=== PATIENT | male | born 2000 | race Caucasian/White ===

== ENCOUNTER 2020-08-31 08:46 | Emergency (ER) | payer OTHER, BC, SELFPAY ==
[2020-08-31 08:47] VITALS: BP 161/86; PULSE 123; RESP 16; TEMP 36.2; O2SAT 99; BMI 31.5
--- NOTE | 2020-08-31 09:00 | ED.RN ---
COMPANY NOT IN DATABASE. UNABLE TO DETERMINE DRUG SCREEN STATUS. PT REPORTS BOSS IN ON WAY IN.
--- NOTE | 2020-08-31 09:13 | ED.VIS.GEN ---
History of Present Illness Chief Complaint: Laceration Informant: Patient Narrative: Patient is a 20-year-old previously healthy male who presents to the emergency department for laceration to his left middle and ring finger. He was at work drilling into a piece of steel. The steel started to spin and cut his finger. Bleeding is controlled prior to arrival in the emergency department. He denies any loss of sensation or muscle strength. He had does have full range of motion. Denies any other injury. He is on any blood thinning medications. Patient does not recall when his last tetanus shot was. Past Medical History - Allergies and Home Meds Allergies/Adverse Reactions: Allergies No Known Allergies Allergy (Verified 08/31/20 08:47) Primary Care Physician: [facility],Out of [NON-STAFF] - 7 Days for suture removal Prior records reviewed: Yes Surgical History: no surgical history Smoking Status: Never smoker Review of Systems All systems negative except as indicated General: Denies: Chills, Fever, Sweats ENT: Denies: Rhinorrhea Cardiovascular: Denies: Chest pain Respiratory: Denies: Dyspnea, Cough Gastrointestinal: Denies: Abdominal pain, Nausea, Vomiting, Diarrhea Musculoskeletal: Reports: Extremity Pain. Denies: Back pain, Swelling Skin: Reports: Wounds. Denies: Rash Neurological: Denies: Headache, Weakness, Numbness Hematologic: Denies: Easy bruising, Easy bleeding Physical Exam Vital Signs/Narrative: Vital Signs Temp Pulse Resp BP Pulse Ox 08/31/20 08:47 97.2 F L 123 H 16 161/86 H 99 Inital Vital Signs reviewed: Yes General: Well nourished, Well developed Head: Normocephalic, Atraumatic Eyes: Perrl, EOMI ENT: Moist mucous membranes Neck: Supple, Nontender Cardiovascular: Regular rate Respiratory: No distress Abdomen: Soft, Nondistended Extremities: - - 3 cm laceration around the distal aspect of tip of ring finger. Sensation intact. Full range of motion. No active bleeding. 1 cm laceration/avulsion to the middle finger. No active bleeding. Sensation intact. Good capillary refill throughout. Skin: Normal color, No rash Neurological: Alert, Normal Strength, Normal Sensation Psychological: Normal affect, Normal Mood Diagnostic/Tx/Re-eval - Medical Decision Making Patient presents to the emergency department for laceration to his finger. He was at work and cut it on a piece of steel. Will update patient's tetanus shot. Lacerations do require suture repair of the middle finger. Dermabond was used for the index finger which was an avulsion fracture will likely not heal and will scab over. Have him follow-up with his family doctor. Patient to monitor for evidence of infection. Sutures will need removed in 7 to 10 days. Warning signs and symptoms for which to return to the ED occluding evidence of infection are reviewed with him. Patient understands and is agreeable this plan. He is discharged home in stable condition. Procedures Procedure(s): Laceration repair: Informed consent was obtained before procedure started. The appropriate timeout was taken. The area was prepped and draped in the usual sterile fashion. Local anesthesia was achieved using 5cc of lidocaine 1% without epinephrine for digital block of middle finger. The wound was copiously irrigated. 8 5-0 Ethilon simple interrupted sutures were placed. A dressing was applied to the area and anticipatory guidance, as well as standard post procedure care, was explained. Return precautions are given. The patient tolerated the procedure well without any apparent complications. Follow-up visit set for suture removal and evaluation of laceration. ED Disposition - Plan for ED Patient: Disposition: Home or Assisted Living Diagnosis: Finger laceration Instructions: ED Laceration All Closures, ED Laceration Hand Referrals: [facility],Out of [NON-STAFF] - 7 Days for suture removal
[2020-08-31] MEDS: Diphth,Pertuss(Acell),Tet Vac 0.5 ML Vial IM (10:13)
--- NOTE | 2020-08-31 10:16 | NURSING ---
[facility], WILL BE IN FOR PATIENT
--- NOTE | 2020-08-31 11:32 | ED.RN ---
completed drug screen with Ady[facility].
== END 2020-08-31 11:32 | disposition home or self-care (01) ==
PROVIDERS: Emergency Provider Emergency Medicine; PCP Pediatrics
DX: S61.213A Laceration without foreign body of left middle finger without damage to nail, initial encounter (principal); S61.215A Laceration without foreign body of left ring finger without damage to nail, initial encounter; W45.8XXA Other foreign body or object entering through skin, initial encounter; Y93.9 Activity, unspecified; Y92.9 Unspecified place or not applicable; Y99.0 Civilian activity done for income or pay; Z23 Encounter for immunization
CPT/HCPCS: 12002; 90471; 90715; 99283